=== PATIENT | female | born 1990 | race Caucasian/White ===

== ENCOUNTER 2017-07-30 15:30 | Outpatient (CLI) | payer OTHER | END 2017-07-30 15:31 | disposition home or self-care (01) | LOC: LAB.R 15:30 | PROVIDERS: ATTEND Family Medicine | DX: N39.0 Urinary tract infection, site not specified (principal) | CPT/HCPCS: 87086 ==

== ENCOUNTER 2020-09-05 13:22 | Outpatient (CLI) | payer OTHER ==
[2020-09-05 14:20] VITALS: BP 112/69
--- NOTE | 2020-09-05 14:20 | SLEEP CARE CONSULTATION ---
Information from patient questionnaire entered by Swathi Green. I have reviewed and concur with the information entered by Swathi Green. This document represents the service I personally performed and the decisions made by me, Candace Garcia ARNP. History of Present Illness Service Date and Time: 09/05/2020 1322 Reason for Visit: New patient, [facility] Chief Complaint: reports: Unrefreshed sleep, Snoring, Excessive daytime sleepiness, Fatigue, Frequent awakenings at night. denies: Insomnia, Observed pauses in breathing, Other Date of Onset: 3 years Usual bedtime: 9 pm Time it takes to fall asleep: 30 minutes Snores at night: Yes Observed to quit breathing while asleep: No Sleeps alone due to snoring: No Number of times waking at night: 5-10 Reasons for waking at night: reports: Bathroom, Other (unknown; to move around; nightmares). denies: Choking, Snoring, Gasping for air Toss, Turn, or Twitch while sleeping: Yes Recalls having dreams: Yes Usually gets out of bed at: 5 am Feels refreshed in the morning: No Morning headache: No Sleepy or fatigued during the day: Yes Ever fallen asleep while driving: No (drowsy driving, no accidents) Takes day naps: Yes (2 times a week, for an hour) Dreams during day naps: No Prior sleep studies: Yes Year and Where: 2012 - [facility] Type of Sleep Study: Polysomnography (negative) Additional HPI information: I had the pleasure of seeing DEBBIE CASAREZ today regarding the possibility of her having a sleep disorder. Her current complaints are snoring, unrefreshed sleep, excessive daytime sleepiness, fatigue and frequent nightly awakenings. She had a study previously that was negative for sleep disordered breathing. She states she has had worsening in the last couple years of awakening during the night. She snores loudly according to her boyfriend but he has not witness pauses in breathing. They do not sleep in the same room due to conflicting sc hedules. She is always tired and wakes up tired daily. - Parasomnia Symptoms Ever been unable to move upon waking from sleep: No Walks in sleep: No Talks in sleep: No Ever acted out dreams in sleep: No Ever felt weak in the knees when startled or emotional: Yes Bothered by creepy, crawly, restless sensations in legs: No Problems with memory or concentration: Yes (cannot remember words at times) Subjective Initial [place] Sleepiness Scale score: 14 (in 2013) Current [place] Sleepiness Scale score: 10 Past Medical History Past Medical History: reports: Depression, GERD, Other (eating disorder). 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 Patient is Single and lives in [place]. Have you smoked in the past 12 months: No Alcohol use: Yes Alcohol amount and frequency: 1 a month Caffeine use: Yes Caffeine amount and frequency: cup of tea every morning Family History Family history of sleep disordered breathing: Yes (dad) Family Hx Sleep Apnea: Father: Snoring, Sleep apnea - Untreated (may have stopped using) Allergies and Home Medications Drug allergies reviewed: Yes (amoxicillin) Home medication list reviewed: Yes Allergy and home medication list: multivitamin vitamin D Ibuprofen, prn OTC sinus congestion relief prn Review of Systems Weight gain over past 5 years: 100 Weight loss over past 5 years: 60 Cardiovascular: denies: high blood pressure, palpitations, chest pain, irregular heart rate or pulse, leg or foot swelling Respiratory: reports: sputum production, chronic cough. denies: shortness of breath Gastrointestinal: reports: heartburn, diarrhea. denies: difficulty swallowing Neurological: denies: headaches, seizure, head trauma, speech dysfunction, gait or balance problems, fainting or unconsciousness Psychiatric: reports: depression, other (eating disorder). denies: Attention Deficit Hyperactivity, anxiety, mood disorder, claustrophobia Ear/Nose/Throat: reports: nasal congestion, sinus problems, wisdom teeth removed. denies: nose bleeds, dry mouth/throat, injury to nose, tonsillectomy Endocrine: reports: sluggishness Musculoskeletal: denies: muscle pain or cramping, mobility problems Immunologic: denies: allergies to food or environment Physical Exam Blood Pressure: 112/69 Cuff size: wrist Heart Rate: 84 O2 Saturation: 98 Height: 5 ft 5 in Weight: 302 lb Body Mass Index: 50.2 BMI Classification: Morbidly Obese Neck circumference: 16.5 (inches) HEENT: No craniofacial malformation Nostrils: patent to airflow Turbinates: swollen Septum: midline Mouth and throat: narrow oropharynx Soft palate: normal Hard palate: arched Uvula: normal Uvula visualization: 25% Mallampati Class III Tongue: enlarged in size with teeth royal on lateral edges Tonsils: 2+ Chin and jaw: normal size and position Neck: normal w/o lymphadenopathy or thyromegaly Heart: regular rate and rhythm Lungs: clear bilaterally Impression and Plan 1. Suspected Obstructive Sleep Apnea-Hypopnea Syndrome, as suggested by a history of loud and irregular snoring, frequent awakening during the night, unrefreshed sleep, cognitive impairment, and excessive daytime sleepiness. I reviewed with patient that a narrow oropharynx and obesity are common predisposing factors for obstructive sleep apnea-hypopnea syndrome. I recommend proceeding to polysomnography to confirm the diagnosis and to assess severity. If the patient has significant sleep disordered breathing, a manual CPAP titration study will also be performed to find the optimal treatment pressure. I informed the patient of what the sleep studies involve and after some discussion, obtained agreement to proceed. The pathophysiology of obstructive sleep apnea-hypopnea syndrome was discussed with the patient and health risks of cardiovascular and cerebrovascular disease if not treated. AASM brochure for obstructive sleep apnea-hypopnea syndrome given and reviewed. Risks of drowsy driving discussed in detail and patient advised to avoid long distance driving and to farm[employer] at the first sign of drowsiness. Patient agreed to plan. * Schedule polysomnography +- manual CPAP titration study. * Avoid long distance driving or driving when feeling sleepy. * Avoid alcohol, sedative and muscle relaxant around bedtime. * Continue to try to lose weight. * Review instructions provided by trained office staff on how to prepare for the sleep study. * Return for follow-up after sleep study completed. Counseling Topics: Weight loss health impact Time Spent with Patient (minutes): 37
== END 2020-09-05 13:23 | disposition home or self-care (01) ==
LOC: SC 13:22
PROVIDERS: ATTEND Nurse Practitioner Family
DX: G47.10 Hypersomnia, unspecified (principal); R41.89 Other symptoms and signs involving cognitive functions and awareness; G47.8 Other sleep disorders; R06.83 Snoring; E66.01 Morbid (severe) obesity due to excess calories; Z68.43 Body mass index [BMI] 50.0-59.9, adult
CPT/HCPCS: 99203; 99212

== ENCOUNTER 2020-10-18 15:41 | Outpatient (CLI) | payer OTHER | END 2020-10-18 15:42 | disposition home or self-care (01) | LOC: SC 15:41 | PROVIDERS: ATTEND Nurse Practitioner Family | DX: G47.33 Obstructive sleep apnea (adult) (pediatric) (principal); R09.02 Hypoxemia; E66.9 Obesity, unspecified; Z68.43 Body mass index [BMI] 50.0-59.9, adult | CPT/HCPCS: 95806 ==

== ENCOUNTER 2020-10-24 15:47 | Outpatient (CLI) | payer OTHER ==
--- NOTE | 2020-10-24 16:16 | SLEEP CARE CONSULTATION ---
Information from patient questionnaire entered by Kimber Dodd. I have reviewed and concur with the information entered by Kimber Dodd. This document represents the service I personally performed and the decisions made by me, Candace Garcia ARNP. History of Present Illness Service Date and Time: 10/24/20201546 Initial [place] Sleepiness Scale score: 14 (in 2013) Current [place] Sleepiness Scale score: 11 Additional HPI information: DEBBIE CASAREZ returns for follow up and results of the recently performed home sleep study. I explained the pathophysiology behind obstructive sleep apnea. We then spent quite a bit of time discussing different treatment options. For mild obstructive sleep apnea, surgery and oral appliance are alternatives to nasal CPAP therapy but in moderate or severe cases, nasal CPAP is the most effective and reliable treatment. Because apnea is primarily in supine position, then positional management therapy could be effective. Methods discussed such as positioning with pillows, using a T-shirt with tennis balls in the back, and shown commercial products that have a pillow format on back to prevent supine sleep. I reviewed the impact of weight changes on sleep apnea and strongly recommended losing weight. After some discussion, the patient opted to go with the nasal CPAP therapy. Nasal autoCPAP set at 4-15 cmH20 will be ordered with rationale explained. A manual titration study will be ordered if unable to find optimal pressure with office adjustments. I explained how CPAP machine works with sample devices RespirXeros Dreamstation and [employer] [id number] and what to expect when using the machine. Using CPAP every night in order to get used to it was emphasized. Patient advised to put CPAP mask on before getting into bed so as not to fall asleep without CPAP. To assist acclimation to CPAP use, it could also be used for a short time during day while reading or watching TV. The patient was instructed to call the CPAP supplier to discuss any mechanical problem that may occur. If the mask given is uncomfortable or is difficult to keep on through the night even with adjustment, contact the CPAP supplier as many will replace with another mask style if notified before 30 days. If snoring or perceives is not getting enough air or too much air from the machine, notify this office. [facility] patient education PAP tips reviewed and given to patient. Patient was cautioned about risks of drowsy driving until sleepiness symptoms resolve. Sleep Study - Results Type of Sleep Study: Home sleep study (negative) Prior sleep studies: Yes Year and Where: 2012 - [facility] Polysomnography/Home Sleep Study results: Physician Impression: The quality of the study is good. The length of the study is adequate (> 240 minutes). Please also see the tabulated and graphic data. 1. Obstructive Sleep Apnea-Hypopnea (ICD-10 G47.33), moderate, with an AHI of 29.4/hr and ange SaO2 of 79%. During the study, the patient had 116 apneas (116 obstructive, 0 central, 0 mixed) and 111 hypopneas. The longest episode lasted 43.0 seconds. The respiratory events occurred slightly more frequently during supine sleep (supine AHI was 55.0 and non-supine, 25.81). 2. Hypoxemia (ICD-10 R09.02), moderate, with the lowest oxygen saturation of 79 % and 36.2 minutes with SaO2 under 90%. Baseline oxygen saturation was normal (Average oxygen saturation was 92%). - Discussion Sleep Study discussion: DEBBIE CASAREZ returns [with spouse ][with partner ]for follow up and results of the recently performed [polysomnography][home sleep study]. I explained the pathophysiology behind obstructive sleep apnea. We then spent quite a bit of time discussing different treatment options. For mild obstructive sleep apnea, surgery and oral appliance are alternatives to nasal CPAP therapy but in moderate or severe cases, nasal CPAP is the most effective and reliable treatment. Because apnea is primarily in supine position, then positional management therapy could be effective. Methods discussed such as positioning with pillows, using a T-shirt with tennis balls in the back, and shown commercial products that have a pillow format on back to prevent supine sleep. I reviewed the impact of weight changes on sleep apnea and strongly recommended losing weight. After some discussion, the patient opted to go with the nasal CPAP therapy. Nasal autoCPAP set at 4-82hlE08 will be ordered with rationale explained. A ma nual titration study will be ordered if unable to find optimal pressure with office adjustments. I explained how CPAP machine works [with sample devices Respir[employer]eros Dreamstation and [employer] [id number] ]and what to expect when using the machine. Using CPAP every night in order to get used to it was emphasized. Patient advised to put CPAP mask on before getting into bed so as not to fall asleep without CPAP. To assist acclimation to CPAP use, it could also be used for a short time during day while reading or watching TV. The patient was instructed to call the CPAP supplier to discuss any mechanical problem that may occur. If the mask given is uncomfortable or is difficult to keep on through the night even with adjustment, contact the CPAP supplier as many will replace with another mask style if notified before 30 days. If snoring or perceives is not getting enough air or too much air from the machine, notify this office. [facility] patient education PAP tips [and Non Pap treatment pamphlets ]reviewed and given to patient. [Patient counseled not drink alcohol less than 4 hours before bedtime as it can increase snoring and apnea. ][Patient does not drink alcohol. ] Patient was cautioned about risks of drowsy driving until sleepiness symptoms resolve. [Patient denies drowsy driving. ][[facility] patient education on snoring and sleep apnea given and reviewed.] Allergies and Home Medications Drug allergies reviewed: Yes (amoxicillin) Home medication list reviewed: Yes (no changes) Review of Systems Review of systems same as previous: Yes Physical Exam Heart Rate: 87 O2 Saturation: 97 Height: 5 ft 5 in Weight: 313 lb Body Mass Index: 52.0 BMI Classification: Morbidly Obese Impression and Plan 1. Obstructive Sleep Apnea-Hypopnea Syndrome, moderate, with lowest oxygen saturation of 79%. Obviously this is the cause of the patients symptoms of unrefreshed sleep, and excessive daytime sleepiness. Positive pressure therapy could benefit her depression and acid reflux. As mentioned above, the patient will be started on nasal autoCPAP therapy with pressure set at 4-15 cmH2O. A manual titration study will be completed if unable to find optimal treatment pressure with office adjustments. Compliance guidelines also reviewed. A copy of compliance guidelines will be given for reference at check out. Because the apnea is more severe supine, I instructed to avoid sleeping supine using pillow positioning until able to start CPAP use. 2. Hypoxemia, moderate. Patient ange oxygen during study saturation of 79% with baseline oxygen saturation of 92%. 3. Obesity, unspecified. Currently patients BMI is 52.0. Obesity increases the risk of apnea, CPAP pressure requirements and overall health risks especially cardiovascular and diabetes. Thus patient is advised to lose weight. * Nasal auto CPAP therapy, pressure at 4-15 cm H2O. * Attempt to lose weight. * Avoid alcohol consumption near bedtime. * Avoid supine sleep until using CPAP. * The patient is again cautioned about driving until sleepiness completely resolves. * Return one month after CPAP obtained. I will assess response to therapy and compliance at that time. Counseling Topics: Weight loss health impact Visit Type: In Office Time Spent with Patient (minutes): 17 Provider Statement: I spent 100% of the Face to Face Visit with the patient with greater than 50% spent counseling the patient and coordination of care.
== END 2020-10-24 15:48 | disposition home or self-care (01) ==
LOC: SC 15:47
PROVIDERS: ATTEND Nurse Practitioner Family
DX: G47.33 Obstructive sleep apnea (adult) (pediatric) (principal); E66.01 Morbid (severe) obesity due to excess calories; Z68.43 Body mass index [BMI] 50.0-59.9, adult; R09.02 Hypoxemia
CPT/HCPCS: 99212; 99213

== ENCOUNTER 2021-02-28 08:00 | Outpatient (CLI) | payer OTHER ==
[2021-02-28 17:56] LABS: ALBUMIN 3.7 g/dL (3.2-5.5); ALBUMIN/GLOBULIN RATIO 0.9 (1.0-2.2); BILIRUBIN,TOTAL 0.4 mg/dL (0.2-1.0); CALCIUM 9.6 mg/dL (8.5-10.3); CREATININE 0.7 mg/dL (0.4-1.0); POTASSIUM 3.8 mmol/L (3.5-5.0); TOTAL PROTEIN 7.7 g/dL (6.7-8.2)
--- OUTSIDE RECORDS SUMMARY | 2021-03-06 02:46 | EXTERNAL MEDICAL SUMMARY RPT | Continuity of Care Document ---
:1990 Demographics Phone Unavailable Preferred Language Hungarian Marital Status Unknown Restorationist Affiliation Unknown Race Unknown Ethnic Group Unknown Author Organization [place] Address [address] [phone] Phone Care Team Providers Name Role Phone Young Unavailable Unavailable Problems date description facility [id number] Encounter for screening for other viral diseases [facility] 20201211 Lumbago with sciatica, unspecified side [facility] [id number] Other specified soft tissue disorders [facility] [id number] Palpitations [facility] [id number] Shortness of breath [facility] [id number] Chronic pansinusitis [facility] [id number] Headache, unspecified [facility] [id number] Other specified disorders of nose and n nathalia sinuses [facility] [id number] Postnasal drip [facility] [id number] Hyperlipidemia, unspecified [facility] [id number] [facility] date description facility [id number] [facility] date description facility [id number] [facility] Vital Signs date measurement value source 20201211 BMI 1.5 kg/m2 20201211 BP_diastolic 70 mm[Hg] 20201211 BP_systolic 120 mm[Hg] 20201211 heart_rate 110 /min 20201211 height_metric 975.36 cm 20201211 height_standard 384 in 20201211 respiration_rate 20 /min 20201211 temperature_metric 36.83 C 20201211 temperature_standard 98.3 F 20201211 weight_metric 66.93 kg 20201211 weight_standard 147.56 lb Social History date description facility [id number]
== END 2021-02-28 23:59 | disposition home or self-care (01) ==
LOC: LAB.WCP 08:00
PROVIDERS: ATTEND Physician Assistant Medical
DX: R06.02 Shortness of breath (principal)
CPT/HCPCS: 36415; 80053; 85379

== ENCOUNTER 2023-09-11 11:16 | Outpatient (CLI) | payer OTHER ==
--- NOTE | 2023-09-11 11:34 | Sleep Patient Instructions ---
Sleep Center Visit Summary - Patient Visit Information Reason for Visit: Annual Visit - Patient Instructions Additional Instructions: You will continue with CPAP therapy with pressure set at 4-15 cmH2O. A supply prescription will be updated with your DME. We encourage you to continue to try to lose weight. Please follow up with the sleep care office in 1 year. - Clinic Information Contact: [facility] [address] [place] [address] [email or web address] T: [phone]
--- NOTE | 2023-09-11 11:37 | SLEEP CARE CONSULTATION ---
Information from patient questionnaire entered by Mayelin Flower. I have reviewed and concur with the information entered by Mayelin Flower. This document represents the service I personally performed and the decisions made by me, Candace Garcia ARNP. History of Present Illness Service Date and Time: 09/11/2023 1116 Previous diagnosis: Moderate, Obstructive Sleep Apnea-Hypopnea Syndrome AHI: 29.4 (in 2019) Reason for follow up: other (LAST SEEN 09/2020) Equipment type: CPAP (RESMED Airsense 10, s/u 10/2020) Equipment obtained from: Other ([facility]; getting supplies) Mask style: Full face Mask brand: Resmed (F20?) Backup mask available: Yes Last cushion change: 2 weeks Prior sleep [facility]: Yes [facility] Type of Sleep Study: Home sleep study (negative) HPI additional information: DEBBIE CASAREZ was diagnosed to have moderate, AHI 29.4, obstructive sleep apnea-hypopnea syndrome and returned today for CPAP therapy annual follow-up. Sleep Study - Results Type of Sleep Study: Home sleep study (negative) Prior sleep studies: Yes [facility] Where[facility] CPAP Compliance Data - Data Reviewed with Patient Average duration of nightly device use: 7 HRS 49 MINS Compliance rate %: 100 (03/13/23-09/08/23; 180/180 days used) Current pressure setting (cmH2O): 4-15 (median 9.7, avg 12.2, max 13.4) Average residual AHI: 0.2 Central apnea: 0 Obstructive apnea: 0.2 Average large leak: 3.5 L/min Subjective Patient concerns: reports: mask discomfort, mask leak noise. denies: aerophagia, air blowing in eyes, condensation in mask/hose, nasal congestion, dry mouth, nose, throat, epistaxis Observed to snore while using device: No Current pressure setting perceived as: comfortable On therapy, patient: reports: sleeping better, awakening more refreshed, being more awake and alert during the day, more rested overall. denies: drowsiness while driving Initial [place] Sleepiness Scale score: 14 (in 2012) Current [place] Sleepiness Scale score: 9 (09/11/23) Allergies and Home Medications Known drug allergies: Yes (amoxicillin) Drug allergies reviewed: Yes Home medication list reviewed: Yes (Pantoprazole) Allergy and home medication list: Allergies amoxicillin Allergy (Verified 09/10/23 12:40) Review of Systems Review of systems same as previous: Yes (NO CHANGE) Physical Exam Vital signs obtained and entered by: MAYELIN Ferraro MA Blood Pressure: 112/71 (LEFT ) Cuff size: wrist Heart Rate: 74 O2 Saturation: 98 Height: 5 ft 5 in Weight: 300 lb Weight change since last visit: 13 lb loss Body Mass Index: 49.9 BMI Classification: Morbidly Obese Impression and Plan 1. Obstructive Sleep Apnea-Hypopnea Syndrome, moderate, with good treatment compliance and good apnea control. On CPAP therapy, the patient has better sleep quality and is more rested overall. Patient has significant improvement of their sleep apnea and is satisfied with current CPAP therapy. Patient denies problems with oral dryness, nasal congestion, epistaxis, skin irritation or aerophagia. Patient's apnea severity and rationale for treatment to reduce apnea, improve sleep quality and reduce cardiovascular and cerebrovascular events was reviewed. I also reviewed the benefit of consistent device use of CPAP for gastric reflux and depression. 2. Obesity, unspecified. Currently patients BMI is 49.9. Obesity increases the risk of apnea, CPAP pressure requirements and overall health risks especially cardiovascular and diabetes. Thus patient is advised to continue to try to lose weight. * Continue auto CPAP pressure at 4-15 cmH2O * Update supply prescription * Notify me if snoring with mask or feeling that the pressure is too much or too little * Attempt to lose weight * Call this office if any problems using CPAP * Return for follow up in 1 year, or sooner if concerns arise Counseling Topics: Spare mask, Weight loss health impact Prescriptions: Device supplies Follow up with Sleep Care in: 1 year Visit Type: In Office Time Spent with Patient (minutes): 20 Provider Statement: I spent 100% of the Face to Face Visit with the patient with greater than 50% spent counseling the patient and coordination of care.
[2023-09-11 11:43] VITALS: BP 112/71; O2SAT 98
== END 2023-09-11 11:17 | disposition home or self-care (01) ==
LOC: SC 11:16
PROVIDERS: ATTEND Nurse Practitioner Family
DX: G47.33 Obstructive sleep apnea (adult) (pediatric) (principal); E66.01 Morbid (severe) obesity due to excess calories; Z68.42 Body mass index [BMI] 45.0-49.9, adult
CPT/HCPCS: 99212; 99213

== ENCOUNTER 2023-10-29 08:46 | Emergency (ER) | payer OTHER ==
[2023-10-29 09:01] VITALS: O2SAT 95
[2023-10-29 09:18] LABS: BASOPHILS % (AUTO) 0.5 %; EOSINOPHILS # (AUTO) 0.1 10^3/uL (0.0-0.7); EOSINOPHILS % (AUTO) 0.8 %; HGB - HEMOGLOBIN 11.4 g/dL (12.0-16.0); LYMPHOCYTES % (AUTO) 26.5 %; MEAN CORPUSCULAR HEMOGLOBIN 26.1 pg (27.0-31.0); MEAN CORPUSCULAR HGB CONC 30.8 g/dL (32.0-36.0); MEAN CORPUSCULAR VOLUME 84.9 fL (81.0-99.0); MEAN PLATELET VOLUME 9.6 fL (7.9-10.8); MONOCYTES # (AUTO) 0.3 10^3/uL (0.0-1.0); MONOCYTES % (AUTO) 4.4 %; NEUTROPHILS % (AUTO) 67.4 %; PLT - PLATELET COUNT 352 10^3/uL (130-450); RED BLOOD COUNT 4.36 10^6/uL (4.20-5.40); RED CELL DISTRIBUTION WIDTH 14.8 % (12.0-15.0); WHITE BLOOD COUNT 7.4 x10^3/uL (4.8-10.8)
[2023-10-29 09:35] LABS: BILIRUBIN,URINE NEGATIVE (NEGATIVE); GLUCOSE, URINE (UA) NEGATIVE (NEGATIVE); KETONES,URINE (UA) NEGATIVE (NEGATIVE); LEUKOCYTE ESTERASE, URINE MODERATE (NEGATIVE); NITRITE,URINE NEGATIVE (NEGATIVE); OCCULT BLOOD,URINE LARGE (NEGATIVE); PROTEIN,URINE TRACE mg/dL (NEGATIVE); UROBILINOGEN,URINE 0.2 (NORMAL) E.U./dL (NORMAL)
[2023-10-29 09:37] LABS: CLARITY,URINE HAZY (CLEAR); HCG UR QUAL NEGATIVE
[2023-10-29] MEDS ORDERED: SODIUM CHLORIDE 0.9% 1,000 ML IV STA (09:38)
[2023-10-29] MEDS ORDERED: METOCLOPRAMIDE 10 MG/2 ML VIAL IVP STA (09:38)
[2023-10-29 09:40] LABS: WBC,URINE 0-3 /HPF (0-5)
--- NOTE | 2023-10-29 09:40 | ED Physician Documentation ---
History of Present Illness - Stated complaint Stated Complaint: N/V,HEART FLUTTER,SHAKEY - Chief complaint Chief Complaint: General - History obtained from History obtained from: Patient - Additonal information Additional information: 33-year-old woman with history of fibromyalgia and potentially PCOS with irregular heavy menses started her menses on Thursday, 4 days ago. Thursday evening started to feel ill with vomiting and diarrhea and fatigue as well as some fluttering palpitations. She has no abdominal pain with this. No fevers. No blood in the vomit or diarrhea. No recent travel. No known sick contacts. In the interim she went to urgent care and got Zofran which was not helpful. She has a known right bundle branch block. PD PAST MEDICAL HISTORY - Past Medical History Past Medical History: Yes Cardiovascular: Arrhythmia Psych: Anxiety Musculoskeletal: Fibromyalgia - Past Surgical History Past Surgical History: Yes General: Cholecystectomy - Present Medications Home Medications: Ambulatory Orders Medication Instructions Recorded Confirmed Pantoprazole Sodium See Rx Instructions .ROUTE .COMPLEX 09/11/23 09/11/23 Propranolol [Inderal] See Rx Instructions .ROUTE .COMPLEX 09/11/23 09/11/23 Metoclopramide [Reglan] 10 mg PO Q6H PRN #20 tablet 10/29/23 - Allergies Allergies/Adverse Reactions: Allergies Allergy/AdvReac Type Severity Reaction Status Date / Time amoxicillin Allergy Rash Verified 10/29/23 09:00 - Social History Does the pt smoke?: No Smoking Status: Never smoker Does the pt drink ETOH?: No Does the pt have substance abuse?: No PD ED PE NORMAL - Vitals Vital signs reviewed: Yes - General General: Alert and oriented X 3, No acute distress - HEENT HEENT: Pharynx benign - Cardiac Cardiac: RRR, No murmur - Respiratory Respiratory: No respiratory distress, Clear bilaterally - Abdomen Abdomen: Normal bowel sounds, Soft, Non tender - Back Back: No CVA TTP, No spinal TTP - Derm Derm: Normal color, Warm and dry - Extremities Extremities: No edema, No calf tenderness / cord - Neuro Neuro: Alert and oriented X 3, Normal speech Results - Vitals Vitals: Vital Signs - 24 hr 10/29/23 08:55 Temperature 36.8 C Heart Rate 62 Respiratory 18 Rate Blood Pressure 125/66 O2 Saturation 95 - EKG (time done) 0929 EKG releavant findings:: EKG personally interpreted by author of this note. Relevant findings are: Rate: Rate (enter#) (63) Rhythm: NSR [place]: Normal Intervals: RBBB QRS: Normal Ischemia: Normal ST segments - Labs Labs: Laboratory Tests 10/29/23 10/29/23 10/29/23 09:12 09:12 09:25 WBC 7.4 RBC 4.36 Hgb 11.4 L Hct 37.0 MCV 84.9 MCH 26.1 L MCHC 30.8 L RDW 14.8 Plt Count 352 MPV 9.6 Neut # (Auto) 5.0 Lymph # (Auto) 2.0 [place] # (Auto) 0.3 Eos # (Auto) 0.1 Baso # (Auto) 0.0 Absolute Nucleated RBC 0.00 Nucleated RBC % 0.0 Sodium 139 Potassium 3.8 Chloride 108 Carbon Dioxide 25 Anion Gap 6.0 BUN 8 Creatinine 0.7 Estimated GFR (MDRD) 95 Glucose 97 Calcium 9.5 Magnesium 1.9 Total Bilirubin 0.3 AST 17 ALT 20 Alkaline Phosphatase 69 Total Protein 7.4 Albumin 4.0 Globulin 3.4 Albumin/Globulin Ratio 1.2 TSH 0.96 Urine Color YELLOW Urine Clarity HAZY Urine pH 7.0 Ur Specific Nitro 1.020 Urine Protein TRACE Urine Glucose (UA) NEGATIVE Urine Ketones NEGATIVE Urine Occult Blood LARGE H Urine Nitrite NEGATIVE Urine Bilirubin NEGATIVE Urine Urobilinogen 0.2 (NORMAL) Ur Leukocyte Esterase MODERATE H Urine RBC 6-10 H Urine WBC 0-3 Ur Squamous Epith Cells FEW Squamous Urine Bacteria Few Ur Microscopic Review INDICATED Urine Culture Comments INDICATED Urine HCG, Qual NEGATIVE PD Medical Decision Making - ED course ED course: 33-year-old woman with vomiting and diarrhea of 3 days duration. States no possibility of . Zofran has been unhelpful. We will check labs and give IV fluid rehydration and Reglan as p.o. Zofran was unhelpful. 33-year-old woman presents with vomiting and diarrhea. Benign exam and no abdominal pain. Work-up in the emergency department demonstrated a chronic right bundle branch block. Very mild anemia on CBC, normal CMP and TSH. Blood in her urine, but moderate leukocyte esterase but no white cells. It is being cultured but I have a low pretest probability for infection given lack of symptoms of that. After the administration of IV fluids and Reglan she was feeling much better. Requesting discharge. Departure - Departure Disposition: 01 Home, Self Care Clinical Impression: Vomiting Qualifiers: Vomiting type: unspecified Nausea presence: with nausea Qualified Code(s): R11.2 - Nausea with vomiting, unspecified Condition: Good Record reviewed to determine appropriate education?: Yes Instructions: ED Nausea Vomiting Prescriptions: Metoclopramide [Reglan] 10 mg PO Q6H PRN #20 tablet PRN Reason: nausea or headache Comments: There is a urine culture pending, we will call you if positive. Otherwise return if not better in the next 2 days or sooner if worse. I sent the prescription for the nausea medication to the [facility] in [place]. Follow-up with your primary care physician calling for the next available appointment. Forms: PCP List
[2023-10-29 09:41] LABS: BACTERIA,URINE Few /HPF (None Seen); SQUAMOUS EPITHELIAL CELL,UR FEW Squamous (<= Few)
[2023-10-29 09:45] LABS: THYROID STIMULATING HORMONE 0.96 uIU/mL (0.34-5.60)
[2023-10-29 10:32] LABS: ALBUMIN/GLOBULIN RATIO 1.2 (1.0-2.2); BILIRUBIN,TOTAL 0.3 mg/dL (0.2-1.0); CALCIUM 9.5 mg/dL (8.5-10.3); CREATININE 0.7 mg/dL (0.6-1.3); MAGNESIUM 1.9 mg/dL (1.7-2.3); POTASSIUM 3.8 mmol/L (3.5-4.5); TOTAL PROTEIN 7.4 g/dL (6.4-8.9)
[2023-10-29 10:47] VITALS: BP 140/67
== END 2023-10-29 10:48 | disposition home or self-care (01) ==
LOC: ED 08:46
DX: R11.2 Nausea with vomiting, unspecified (principal)
CPT/HCPCS: 36415; 80053; 81001; 81025; 83735; 84443; 85025; 87086; 93005; 96374; 99283; 99284; J2765; 81003

== ENCOUNTER 2023-11-03 21:28 | Emergency (ER) | payer OTHER ==
[2023-11-03 22:42] LABS: B. PARAPERTUSSIS- RESP PCR PAN NOT DETECTED; B. PERTUSSIS- RESP PCR PANEL NOT DETECTED; C. PNEUMONIAE- RESP PCR PANEL NOT DETECTED; CORONAVIRUS 229E-RESP PCR NOT DETECTED; CORONAVIRUS HKU1-RESP PCR NOT DETECTED; CORONAVIRUS NL63-RESP PCR NOT DETECTED; CORONAVIRUS OC43-RESP PCR NOT DETECTED; HUMAN METAPNEUMOVIRUS NOT DETECTED; INFLUENZA A- RESP PCR PANEL NOT DETECTED; INFLUENZA B - RESP PCR PANEL NOT DETECTED; M. PNEUMONIAE- RESP PCR PANEL NOT DETECTED; PARAINFLUENZA VIRUS 1 NOT DETECTED; PARAINFLUENZA VIRUS 2 NOT DETECTED; PARAINFLUENZA VIRUS 3 NOT DETECTED; PARAINFLUENZA VIRUS 4 NOT DETECTED; RHINOVIRUS/ENTEROVIRUS NOT DETECTED; RSV- RESP PCR PANEL NOT DETECTED; SARS-CoV-2 -RESP PCR PANEL NOT DETECTED
[2023-11-03] MEDS ORDERED: KETOROLAC 30 MG/ML VIAL IVP STA (23:12)
[2023-11-03] MEDS ORDERED: ONDANSETRON 4 MG/2 ML VIAL IVP STA (23:12)
[2023-11-03] MEDS ORDERED: SODIUM CHLORIDE 0.9% 1,000 ML IV STA (23:12)
[2023-11-03 23:32] LABS: BASOPHILS # (AUTO) 0.1 10^3/uL (0.0-0.1); BASOPHILS % (AUTO) 0.6 %; EOSINOPHILS # (AUTO) 0.1 10^3/uL (0.0-0.7); EOSINOPHILS % (AUTO) 0.8 %; HCT - HEMATOCRIT 38.9 % (37.0-47.0); HGB - HEMOGLOBIN 11.9 g/dL (12.0-16.0); LYMPHOCYTES # (AUTO) 2.5 10^3/uL (1.5-3.5); LYMPHOCYTES % (AUTO) 27.3 %; MEAN CORPUSCULAR HEMOGLOBIN 25.8 pg (27.0-31.0); MEAN CORPUSCULAR HGB CONC 30.6 g/dL (32.0-36.0); MEAN CORPUSCULAR VOLUME 84.2 fL (81.0-99.0); MEAN PLATELET VOLUME 9.4 fL (7.9-10.8); MONOCYTES # (AUTO) 0.5 10^3/uL (0.0-1.0); PLT - PLATELET COUNT 350 10^3/uL (130-450); RED BLOOD COUNT 4.62 10^6/uL (4.20-5.40); WHITE BLOOD COUNT 9.1 x10^3/uL (4.8-10.8)
[2023-11-03 23:50] LABS: ALBUMIN/GLOBULIN RATIO 1.2 (1.0-2.2); BILIRUBIN,TOTAL 0.3 mg/dL (0.2-1.0); CALCIUM 9.9 mg/dL (8.5-10.3); CREATININE 0.7 mg/dL (0.6-1.3); POTASSIUM 3.6 mmol/L (3.5-4.5); TOTAL PROTEIN 7.4 g/dL (6.4-8.9)
[2023-11-04] MEDS ORDERED: LORazepam 1 MG TABLET PO STA (00:24)
--- NOTE | 2023-11-04 00:37 | ED Physician Documentation ---
History of Present Illness - Stated complaint Stated Complaint: SHAKY/SOA/VOMIT - Chief complaint Chief Complaint: General - History obtained from History obtained from: Patient - Additonal information Additional information: Patient is a 33-year-old female presenting for evaluation of feeling heaviness and shakiness throughout her body this evening. She reports having an episode of nausea and vomiting after dinner. She has been having sinus pressure and congestion for the past day. She denies headache but reports feeling lightheaded. No chest pain, cough or shortness of air. No abdominal pain. She was seen here a few days ago for palpitations with an unremarkable work-up. She is on propanolol for history of palpitations. Review of Systems Constitutional: reports: Myalgias. denies: Fever Cardiac: denies: Chest pain / pressure Respiratory: denies: Dyspnea GI: reports: Nausea, Vomiting. denies: Abdominal Pain : denies: Dysuria Neurologic: reports: Generalized weakness. denies: Syncope, Headache PD PAST MEDICAL HISTORY - Past Medical History Cardiovascular: Arrhythmia Psych: Anxiety Musculoskeletal: Fibromyalgia - Past Surgical History Past Surgical History: Yes General: Cholecystectomy - Present Medications Home Medications: Ambulatory Orders Medication Instructions Recorded Confirmed Pantoprazole Sodium See Rx Instructions .ROUTE .COMPLEX 09/11/23 09/11/23 Propranolol [Inderal] See Rx Instructions .ROUTE .COMPLEX 09/11/23 09/11/23 Ondansetron Odt [Zofran] 4 mg TL Q6H PRN #10 tablet 11/04/23 - Allergies Allergies/Adverse Reactions: Allergies Allergy/AdvReac Type Severity Reaction Status Date / Time amoxicillin Allergy Rash Verified 11/03/23 21:41 - Social History Does the pt smoke?: No Smoking Status: Never smoker Does the pt drink ETOH?: No Does the pt have substance abuse?: No PD ED PE NORMAL - General General: Alert and oriented X 3, No acute distress, Well developed/nourished - HEENT HEENT: Atraumatic, PERRL, EOMI, Moist mucous membranes, Pharynx benign - Neck Neck: Supple, no meningeal sign - Cardiac Cardiac: RRR, Strong equal pulses - Respiratory Respiratory: No respiratory distress, Clear bilaterally - Abdomen Abdomen: Normal bowel sounds, Soft, Non tender, Non distended - Derm Derm: Warm and dry - Extremities Extremities: No edema - Neuro Neuro: Alert and oriented X 3, 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, No motor deficit, No sensory deficit, Normal speech Results - Vitals Vitals: Vital Signs - 24 hr 11/03/23 11/03/23 11/04/23 21:30 21:40 01:00 Temperature 36.9 C Heart Rate 89 89 64 Respiratory 18 18 18 Rate Blood Pressure 180/93 H 180/93 H 126/75 O2 Saturation 98 98 95 Oxygen O2 Source Room air - Labs Labs: Laboratory Tests 11/03/23 11/03/23 11/03/23 21:30 23:27 23:27 WBC 9.1 RBC 4.62 Hgb 11.9 L Hct 38.9 MCV 84.2 MCH 25.8 L MCHC 30.6 L RDW 15.0 Plt Count 350 MPV 9.4 Neut # (Auto) 6.0 Lymph # (Auto) 2.5 [place] # (Auto) 0.5 Eos # (Auto) 0.1 Baso # (Auto) 0.1 Absolute Nucleated RBC 0.00 Nucleated RBC % 0.0 Sodium 137 Potassium 3.6 Chloride 106 Carbon Dioxide 25 Anion Gap 6.0 BUN 9 Creatinine 0.7 Estimated GFR (MDRD) 95 Glucose 99 Calcium 9.9 Total Bilirubin 0.3 AST 15 ALT 20 Alkaline Phosphatase 70 Total Protein 7.4 Albumin 4.0 Globulin 3.4 Albumin/Globulin Ratio 1.2 Lipase 14 Nasal Adenovirus (PCR) NOT DETECTED Nasal B. parapertussis DNA (PCR) NOT DETECTED Nasal Coronavir 229E PCR NOT DETECTED Nasal Coronavir HKU1 PCR NOT DETECTED Nasal Coronavir NL63 PCR NOT DETECTED Nasal Coronavir OC43 PCR NOT DETECTED Nasal Enterovir/Rhinovir PCR NOT DETECTED Nasal Influenza B PCR NOT DETECTED Nasal Influenza A PCR NOT DETECTED Nasal Parainfluen 1 PCR NOT DETECTED Nasal Parainfluen 2 PCR NOT DETECTED Nasal Parainfluen 3 PCR NOT DETECTED Nasal Parainfluen 4 PCR NOT DETECTED Nasal RSV (PCR) NOT DETECTED Nasal B.pertussis DNA PCR NOT DETECTED Nasal C.pneumoniae (PCR) NOT DETECTED [place] Human Metapneumo PCR NOT DETECTED Nasal M.pneumoniae (PCR) NOT DETECTED Nasal SARS-CoV-2 (PCR) NOT DETECTED PD Medical Decision Making - ED course Complexity details: reviewed results, re-evaluated patient, d/w patient ED course: Patient is a 33-year-old female presenting for feelings of shakiness and heaviness throughout her body this evening along with an episode of nausea and vomiting. Was recently seen here for palpitations but denies palpitations tonight. No chest pain or feeling short of air. Does report having some sinus congestion. No fevers. Respiratory swab was obtained which is unremarkable. Her neuro exam is normal with no signs of any focal deficits. She denies vertigo. CBC and chemistries without any significant findings. Patient was given Zofran and IV fluids and feeling better. She continued to report feeling like she was having some spasms throughout her body and legs and twitching that she felt was coming intermittently. I did give her a dose of Ativan and this se emed to resolve those symptoms. Her symptoms do not appear to suggest a seizure.Patient is counseled on continued supportive care as well as need for close follow-up. She is advised on concerning symptoms to return for. She is ambulatory at discharge. Departure - Departure Disposition: 01 Home, Self Care Clinical Impression: Shakiness, Nausea & vomiting Condition: Stable Instructions: ED Nausea Vomiting Prescriptions: Ondansetron Odt [Zofran] 4 mg TL Q6H PRN #10 tablet PRN Reason: Nausea / Vomiting Comments: Please continue with rest and staying hydrated over the next few days. Have sent a prescription for an antinausea medication called Zofran to [facility] in [place]. Your lab testing today does not show any significant abnormalities and your respiratory swab was negative for the tested viruses including COVID, influenza and RSV. However based on your symptoms you could be still coming down with a virus that we do not test for. If at any time you are having worsening symptoms then I would recommend close return to the emergency department. Forms: PCP List Discharge Date/Time: 11/04/23 01:30
[2023-11-04] MEDS ORDERED: ONDANSETRON ODT 4 MG Prepack 2 TL PRN (01:04)
[2023-11-04 01:33] VITALS: BP 126/75; O2SAT 95
== END 2023-11-04 01:30 | disposition home or self-care (01) ==
LOC: ED 21:28
DX: R25.1 Tremor, unspecified (principal); R11.2 Nausea with vomiting, unspecified; Z11.52 Encounter for screening for COVID-19; Z79.899 Other long term (current) drug therapy
CPT/HCPCS: 36415; 80053; 83690; 85025; 87633; 96374; 99284